=== PATIENT | male | born 1990 | race African-American/Black ===

== ENCOUNTER → 2024-06-06 | Emergency (ER) | payer BC ==
[~2024-06-06] VITALS: Ht 185.4 cm; Wt 122.7 kg
[~2024-06-06] MED LIST: ACET-66 PO; CEPH-558 PO; GUAIFDM PO; IBUP-1554 PO
[2024-06-06 08:08] VITALS: BP 138/83; PULSE 87; RESP 18; TEMP 100; O2SAT 97
== END | disposition home or self-care (01) ==
LOC: EMS 07:47
DX: J02.9 Acute pharyngitis, unspecified (principal); J06.9 Acute upper respiratory infection, unspecified
CPT/HCPCS: 87430; 99283